=== PATIENT | female | born 1995 | race African-American/Black ===

== ENCOUNTER 2025-04-09 10:28 | Emergency (ER) | payer MEDICAID ==
[~2025-04-09] VITALS: Ht 162.6 cm; Wt 51.8 kg
--- NOTE | 2025-04-09 11:00 | ED.PDOC ---
SILVERER HPI Comments 29 y.o female presents to the ED for a chief complaint of pelvic pain associated with vaginal spotting s/p lifting a 5 gallon jug of water yesterday. Patient reports as she was lifting the gallon, felt a sharp left sided pelvic pain, states she placed the gallon down and later that day when using the restroom, noticed light spotting. Patient is about 5 weeks gestation, was [facility] at [facility] who confirmed to be around 4 weeks via LMP. Patient today states no spotting however is now having right sided pelvic pressure. She denies any clotting, fever, chills, back pain, nausea or vomiting. She has a hx of one in the past. . Chief Complaint: Vaginal Bleed Time Seen by MD: 10:52 Reviewed Notes: Nurses Notes, Medications, Allergies Allergies: Coded Allergies: NO KNOWN ALLERGIES (Unverified , 04/09/25) Home Meds Active Scripts Acetaminophen (Tylenol Extra Strength) 500 Mg Tab, 1000 MG PO Q6HP PRN, #30 TAB prn pain Prov:SHARIF PARDO MD 04/09/25 Nitrofurantoin Monohydrate Mac (Macrobid) 100 Mg Cap, 100 MG PO BID for 7 Days, #14 CAP Prov:SHARIF PARDO MD 04/09/25 Information Source: Patient Mode of Arrival: Ambulatory Timing: Days (1) Severity: Mild Vaginal Discharge: None Vaginal Lesions: None Vaginal Mass: None Onset Of Mass/Bleeding: Spontaneous Sexual Activity: Last Consensual [place]: Unknown Control: None History of: Current Associated Signs and Symptoms: Vaginal Bleeding, Cramping Past Medical History PAST MEDICAL HISTORY: Denies Surgical History (Other): Elective ab 2 Para 0 AB 1 Family History Family History: Reviewed,noncontributory to illness Social History Smoker: Non-Smoker Alcohol: Denies ETOH Use Drugs: Denies Drug Use Lives In: Home Constitutional: denies: chills, diaphoresis, fatigue, fever, malaise, sweats, weakness, others EENTM: denies: blurred vision, double vision, ear bleeding, ear discharge, ear drainage, ear pain, ear ringing, eye pain, eye redness, hearing loss, mouth pain, mouth swelling, nasal discharge, nose bleeding, nose congestion, nose pain, photophobia, tearing, throat pain, throat swelling, voice changes, others Respiratory: denies: cough, hemoptysis, orthopnea, SOB at rest, shortness of breath, SOB with excertion, stridor, wheezing, others Cardiovascular: denies: chest pain, dizzy spells, diaphoresis, Dyspnea on exertion, edema, irregular heart beat, left arm pain, lightheadedness, palpitations, PND, syncope, others Gastrointestinal: denies: abdomen distended, abdominal pain, blood streaked bowels, constipated, diarrhea, dysphagia, difficulty swallowing, hematemesis, melena, nausea, poor appetite, poor fluid intake, rectal bleeding, rectal pain, vomiting, others Genitourinary: reports: abnormal vagina bleeding, pain, ; denies: burning, dyspareunia, dysuria, flank pain, frequency, hematuria, incontinence, vagina discharge, urgency, others Neurological: denies: dizziness, fainting, headache, left sided numbness, left sided weakness, numbness, paresthesia, pre-existing deficit, right sided numbness, right sided weakness, seizure, speech problems, tingling, tremors, weakness, others Musculoskeletal: denies: back pain, gout, joint pain, joint swelling, muscle pain, muscle stiffness, neck pain, others Integumetry: denies: bruises, change in color, change in hair/nails, dryness, laceration, lesions, lumps, rash, wounds, others Allergic/Immunocompromised: denies: Difficulty Healing, Frequent Infections, Hives, Itching, others Hematologic/Lymphatic: denies: anemia, blood clots, easy bleeding, easy bruising, swollen glands, others Psychiatric: denies: anxiety, bipolar disorder, depression, hopeless, panic disorder, schizophrenia, sleepless, suicidal, others All Other Systems: Reviewed and Negative Physical Exam General Appearance: No Apparent Distress HEENT: Other (Pupils and face symmetric. Moist mucous membranes.) Neck: Full Range of Motion, Normal Inspection Respiratory: Lungs Clear, No Accessory Muscle Use, No Respiratory Distress, Normal Breath Sounds Cardiovascular: No Edema, No JVD, Regular Rate/Rhythm Breast Exam: Deferred Gastrointestinal: Non Tender, Soft Genitalia: Deferred Pelvic: Deferred Rectal: Deferred Extremities: Normal inspection, Normal range of motion, Non-tender, No pedal edema Neurologic: Alert (Oriented x4), Normal Affect, Normal Mood, Other (Ambulatory) Cerebellar Function: NOT DONE Reflexes: NOT DONE Skin: Dry, Normal Color, Warm Lymphatic: NOT DONE Was a procedure done? Was a procedure done?: No Differential Diagnosis (MERCHANDISING COORDINATOR) Vaginal Bleeding: - Incomplete, - Inevitable, - Missed, - Threatened, Ectopic , UTI X-Ray, Labs, Meds, VS Vital Signs Date Time Temp Pulse Resp B/P (MAP) Pulse Ox O2 Delivery O2 Flow Rate FiO2 04/09/25 10:30 98.7 74 16 115/75 94 98.7 Lab Test 04/09/25 11:19 04/09/25 11:08 Range/Units Urine Color Yellow Yellow Urine Clarity Clear Clear Urine pH 5.5 5.0-9.0 Urine Specific [place] 1.030 1.001-1.035 Urine Protein 1+ H Negative Urine Ketones 2+ H Negative Urine Blood Negative Negative /uL Urine Nitrite Negative Negative Urine Bilirubin Negative Negative Urine Urobilinogen Normal Negative mg/dL Urine Leukocyte Esterase Negative Negative /uL Urine RBC 1 0 - 4 /hpf Urine Microscopic WBC 3 0-5 /HPF Urine Squamous Epithelial Cells Few <5 /hpf Urine Bacteria Few H None Seen /hpf Urine Mucus Few None Seen Urine Glucose Normal Normal mg/dL Urine Test Positive Negative White Blood Count 7.4 4.4-10.8 10^3/uL Red Blood Count 4.90 4.0-5.20 10^6/uL Hemoglobin 15.0 12.2-16.2 g/dL Hematocrit 41.3 36.0-46.0 % Mean Corpuscular Volume 84.4 80.0-100.0 fL Mean Corpuscular Hemoglobin 30.6 28.0-32.0 pg Mean Corpuscular Hemoglobin Concent 36.2 H 32.0-36.0 g/dL Red Cell Distribution Width 13.7 11.8-14.3 % Platelet Count 368 140-450 10^3/uL Mean Platelet Volume 7.1 6.9-10.8 fL Neutrophils (%) (Auto) 64.7 37.0-80.0 % Lymphocytes (%) (Auto) 27.6 10.0-50.0 % Monocytes (%) (Auto) 6.3 0.0-12.0 % Eosinophils (%) (Auto) 1.0 0.0-7.0 % Basophils (%) (Auto) 0.4 0.0-2.0 % Neutrophils # (Auto) 4.8 1.6-8.6 10 ^3/uL Lymphocytes # (Auto) 2.1 0.4-5.4 10 ^3/uL Monocytes # (Auto) 0.5 0-1.3 10 ^3/uL Eosinophils # (Auto) 0.1 0-0.8 10 ^3/uL Basophils # (Auto) 0 0-0.2 10 ^3/uL Nucleated Red Blood Cells 0.2 % Sodium Level 137 136-145 mmol/L Potassium Level 3.4 L 3.5-5.1 mmol/L Chloride Level 106 98-107 mmol/L Carbon Dioxide Level 24 20-31 mmol/L Anion Gap 7 5-15 Blood Urea Nitrogen 10 9-23 mg/dL Creatinine 0.79 0.550-1.02 mg/dL Glomerular Filtration Rate Calc 105 >90 mL/min BUN/Creatinine Ratio 12.7 10.0-20.0 Serum Glucose 80 74-106 mg/dL Calcium Level 9.6 8.7-10.4 mg/dL Beta HCG, Quantitative 7146.4 H 1.5-4.2 mIU/mL Current Medications Medications (Trade) Dose Ordered Sig/Shelley Route Start Time Stop Time Status Last Admin Potassium Bicarbonate (Klor-Con/Ef) 50 meq ONCE ONCE PO 04/09/25 12:45 04/09/25 12:52 DC 04/09/25 13:11 [place] [address] Ph: [phone] DIAGNOSTIC IMAGING Diagnostic Imaging Report : [id number] Signed PATIENT: MARTA ZELAYA ACCT: [id number] UNIT: [id number] : 1995 LOC: ER ROOM / BED: / AGE / SEX: 29 / F ADM STATUS: REG ER SERVICE 1050 ORDERING PHYSICIAN: SHARIF PARDO MD PROCEDURE(s): OB4US - OB ULTRASOUND COMP LESS 14WKS REASON: preg vag bleed ORDER NUMBER(s): [id number], ACCESSION NUMBER(s): [id number] CLINICAL HISTORY: . Vaginal bleeding. COMPARISON:US OB TRANS VAGINAL US on DOS: 04/09/25 TECHNIQUE: Transvaginal and transabdominal grayscale sonographic imaging of the uterus and ovaries was performed, assisted by color Doppler technique. Duplex Doppler ultrasound of both ovaries was also performed. FINDINGS: The uterus measures 8.7 x 5.0 x 5.1 cm. There is an intrauterine gestational sac with no yolk sac or pole identified. [place]-rump length measures 0.51 cm, which is out of range for gestational age determination. There is a 2.5 cm cystic structure in the cervix, likely nabothian cyst. Small amount of fluid in the cul-de-sac. Right ovary measures 2.6 x 1.5 x 1.4 cm. Arterial and venous blood flow demonstrated. There is an isoechoic ovoid structure in the right ovary measuring up to 2.2 x 1.6 x 1.1 cm with prominent peripheral vascular flow. Left ovary measures 2.0 x 1.1 x 1.2 cm. Arterial and venous blood flow demonstrated. Small left ovarian follicles are seen. IMPRESSION: 1. Small intrauterine gestational sac in the endometrial canal. No yolk sac or pole identified. The size of the gestational sac is out of range for gestational age determination. Correlate with clinical findings, serial beta HCG levels, and follow-up ultrasound recommended. 2. Ovoid structure in the right ovary is isoechoic to the right ovarian parenchyma with prominent peripheral vascularity. Possibly collapsing complex cyst or other mass. Correlate with clinical findings. Attention on follow-up ultrasound recommended. 3. Likely nabothian cyst in the cervix. 4. Small amount of free fluid in the cul-de-sac, likely physiologic fluid. X-Ray, Labs, Meds, VS Comment 29-year-old female G 2, P0, AB1, with current approximate 5 week presenting complaining of pelvic discomfort and vaginal spotting after an episode of heavy lifting Vitals remarkable for oxygen saturation 94% on room air Exam unremarkable Rhythm strip independently interpreted by me: Sinus rhythm, rate 74, no ectopy. Ob ultrasound CBC unremarkable, basic metabolic panel remarkable for potassium 3.4, serum quantitative hCG 7146.4, UA positive for protein, ketones, squames and bacteria Patient treated with the following in the ED: Effervescent potassium 50 mEq p.o. On re-evaluation, patient states she was not in significant pain. Vitals were stable. Exam was benign. Patient was hemodynamically stable. Patient appears stable for discharge with close outpatient follow-up with her OBGYN in 3-4 days for repeat ultrasound repeat serum quantitative hCG. Patient will also be referred to Dr. Verma. Rx Macrobid to cover for bacteriuria. Time of 1ST Reevaluation: 12:00 Reevaluation 1ST: Unchanged Patient Education/Counseling: Diagnosis, Treatment, Need For Follow Up Family Education/Counseling: No Family Present Departure 1 Departure Time of Disposition: 12:46 Impression: Primary Impression: Vaginal bleeding affecting early Disposition: 01 HOME / SELF CARE / HOMELESS Condition: Stable Referrals: FILEMON VERMA DO Additional Instructions: Your blood tests showed you have a slightly low potassium. We have corrected this in the ER. Your urine test showed you have some bacteria in your urine, which in we treat with antibiotics to prevent infection. I have prescribed antibiotics which have been sent to your pharmacy. Your ultrasound showed a possible gestational sac, however we are unable to visualize a fetus at this time. It may be too early to see the baby, you may recently have had a miscarriage, or you may have a outside of the uterus, as we discussed earlier. I have enclosed your ultrasound report below to show to your doctor when you follow up. Follow-up with your OBGYN or in ER in 3-4 days for repeat serum quantitative hCG ( hormone level) and repeat ultrasound. Return to ER sooner for severe pain, heavy bleeding, or any other concern. If you do not have an OBGYN, you may follow-up with Dr. Verma. [place] [address] Ph: [phone] DIAGNOSTIC IMAGING Diagnostic Imaging Report : [id number] Signed PATIENT: MARTA ZELAYA ACCT: [id number] UNIT: [id number] : 1995 LOC: ER ROOM / BED: / AGE / SEX: 29 / F ADM STATUS: REG ER SERVICE 1050 ORDERING PHYSICIAN: SHARIF PARDO MD PROCEDURE(s): OB4US - OB ULTRASOUND COMP LESS 14WKS REASON: preg vag bleed ORDER NUMBER(s): [id number], ACCESSION NUMBER(s): [id number] CLINICAL HISTORY: . Vaginal bleeding. COMPARISON:US OB TRANS VAGINAL US on DOS: 04/09/25 TECHNIQUE: Transvaginal and transabdominal grayscale sonographic imaging of the uterus and ovaries was performed, assisted by color Doppler technique. Duplex Doppler ultrasound of both ovaries was also performed. FINDINGS: The uterus measures 8.7 x 5.0 x 5.1 cm. There is an intrauterine gestational sac with no yolk sac or pole identified. [place]-rump length measures 0.51 cm, which is out of range for gestational age determination. There is a 2.5 cm cystic structure in the cervix, likely nabothian cyst. Small amount of fluid in the cul-de-sac. Right ovary measures 2.6 x 1.5 x 1.4 cm. Arterial and venous blood flow demonstrated. There is an isoechoic ovoid structure in the right ovary measuring up to 2.2 x 1.6 x 1.1 cm with prominent peripheral vascular flow. Left ovary measures 2.0 x 1.1 x 1.2 cm. Arterial and venous blood flow demonstrated. Small left ovarian follicles are seen. IMPRESSION: 1. Small intrauterine gestational sac in the endometrial canal. No yolk sac or pole identified. The size of the gestational sac is out of range for gestational age determination. Correlate with clinical findings, serial beta HCG levels, and follow-up ultrasound recommended. 2. Ovoid structure in the right ovary is isoechoic to the right ovarian parenchyma with prominent peripheral vascularity. Possibly collapsing complex cyst or other mass. Correlate with clinical findings. Attention on follow-up ultrasound recommended. 3. Likely nabothian cyst in the cervix. 4. Small amount of free fluid in the cul-de-sac, likely physiologic fluid. e-Prescriptions Acetaminophen (Tylenol Extra Strength) 500 Mg Tab 1000 MG PO Q6HP PRN, #30 TAB prn pain Prov: SHARIF PARDO MD 04/09/25 Nitrofurantoin Monohydrate Mac (Macrobid) 100 Mg Cap 100 MG PO BID for 7 Days, #14 CAP Prov: SHARIF PARDO MD 04/09/25 Discharged With: Relative Critical Care Note Critical Care Time?: No Stability Stability form required: No I personally scribed for SHARIF PARDO MD ([email or web address]) on 04/09/25 at 11:00. Electronically submitted by Karolyn Puente ([facility]). I personally scribed for SHARIF PARDO MD ([email or web address]) on 04/09/25 at 11:20. Electronically submitted by Karolyn Puente ([facility]). SHARIF PARDO MD Apr 09, 2025 11:00
[2025-04-09 11:26] LABS: Hematocrit 41.3 % (36.0-46.0); Hemoglobin 15.0 g/dL (12.2-16.2); Mean Corpuscular Hemoglobin 30.6 pg (28.0-32.0); Mean Corpuscular Volume 84.4 fL (80.0-100.0); Nucleated Red Blood Cells % 0.2 %
[2025-04-09 11:27] LABS: Chloride 106 mmol/L (98-107); Sodium 137 mmol/L (136-145)
[2025-04-09 11:28] LABS: Urine Protein, UAD 1+ (Negative)
[2025-04-09 11:28] LABS: Carbon Dioxide 24 mmol/L (20-31)
[2025-04-09 11:29] LABS: Calcium 9.6 mg/dL (8.7-10.4)
[2025-04-09 11:30] LABS: Potassium 3.4 mmol/L (3.5-5.1)
[2025-04-09 11:31] LABS: Anion Gap 7 (5-15)
[2025-04-09 11:34] LABS: BUN/Creatinine Ratio 12.7 (10.0-20.0); Blood Urea Nitrogen 10 mg/dL (9-23); Glucose 80 mg/dL (74-106)
[2025-04-09] MEDS ORDERED: NITR-87 PO (12:50)
[2025-04-09] MEDS ORDERED: ACET-1304 PO (12:50)
--- NOTE | 2025-04-09 13:00 | DVH ---
CLINICAL HISTORY: . Vaginal bleeding. COMPARISON:US OB TRANS VAGINAL US on DOS: 04/09/25 TECHNIQUE: Transvaginal and transabdominal grayscale sonographic imaging of the uterus and ovaries wa s performed, assisted by color Doppler technique. Duplex Doppler ultrasound of both ovaries was also performed. FINDINGS: The uterus measures 8.7 x 5.0 x 5.1 cm. There is an intrauterine gestational sac with no yo lk sac or pole identified. [place]-rump length measures 0.51 cm, which is out of range for gesta tional age determination. There is a 2.5 cm cystic structure in the cervix, likely nabothian cyst. Sm all amount of fluid in the cul-de-sac. Right ovary measures 2.6 x 1.5 x 1.4 cm. Arterial and venous blood flow demonstrated. There is an iso echoic ovoid structure in the right ovary measuring up to 2.2 x 1.6 x 1.1 cm with prominent periphera l vascular flow. Left ovary measures 2.0 x 1.1 x 1.2 cm. Arterial and venous blood flow demonstrated. Small left ovari an follicles are seen. IMPRESSION: 1. Small intrauterine gestational sac in the endometrial canal. No yolk sac or pole identified. The size of the gestational sac is out of range for gestational age determination. Correlate with cl inical findings, serial beta HCG levels, and follow-up ultrasound recommended. 2. Ovoid structure in the right ovary is isoechoic to the right ovarian parenchyma with prominent per ipheral vascularity. Possibly collapsing complex cyst or other mass. Correlate with clinical finding s. Attention on follow-up ultrasound recommended. 3. Likely nabothian cyst in the cervix. 4. Small amount of free fluid in the cul-de-sac, likely physiologic fluid.
[2025-04-09] MEDS: POTASSIUM EFFERVESENT TAB 25 MEQ PO ONE (13:11)
[2025-04-09] MEDS ORDERED: POTASSIUM EFFERVESENT TAB 25 MEQ ONE (13:13)
[2025-04-09 14:45] VITALS: BP 132/75; PULSE 105; RESP 16; TEMP 99; O2SAT 96
== END 2025-04-09 14:45 | disposition home or self-care (01) ==
LOC: ER 10:28
DX: O20.9 Hemorrhage in early pregnancy, unspecified (principal); R10.2 Pelvic and perineal pain; Z3A.01 Less than 8 weeks gestation of pregnancy
CPT/HCPCS: 36415; 76801; 76817; 80048; 81001; 81025; 84702; 85025

== ENCOUNTER 2025-04-18 18:21 | Emergency (ER) | payer MEDICAID ==
[~2025-04-18] VITALS: Ht 162.6 cm; Wt 48.0 kg
[~2025-04-18 18:21] MED LIST: ACET-1304 PO; NITR-87 PO
[2025-04-18] MEDS: SODIUM CHLORIDE 0.9% 1,000 ML IV ONE (19:15)
[2025-04-18 19:58] LABS: Hematocrit 39.3 % (36.0-46.0); Hemoglobin 14.0 g/dL (12.2-16.2); Mean Corpuscular Hemoglobin 30.2 pg (28.0-32.0); Mean Corpuscular Volume 84.4 fL (80.0-100.0); Nucleated Red Blood Cells % 0.1 %
--- NOTE | 2025-04-18 20:11 | ED.PDOC ---
GI ASSESSMENT HPI Comments HPI: 30 y/o F, with no prior medical history presents to the ED for CC of diarrhea. Patient states, she has had diarrhea following recent travel outside the [place] to [place] x1week ago. Patient endorses, bowls to have been loose and blood streaked as of this morning (04/18/25 with areas of "beat color". Patient x1. She is 6weeks gestation by home test. She mentions having LLQ abdominal cramping with "dark brown" vaginal discharge x2days. Patient denies any nausea, vomiting, fever, or chills. No other symptoms or modifying factors are present at this time. Initial Vitals BP: HR: RR: O2 Sat: Temp: Past Medical history: DENIES ANY Past Surgical history: DENIES ANY Medications: PRENATALS Social History: Denies smoking, ETOH, and drug use. Allergies: NKDA HPI: Poor Historian. REVIEW OF SYSTEMS: CONSTITUTIONAL: Denies acute: fever, diaphoresis, chills, generalized weakness. HEAD: Denies acute: headache, photophobia Eyes: Denies acute: Double vision, vision loss, eye pain, eye discharge. EARS: Denies acute: tinnitus, hearing loss, ear discharge, ear pain, THROAT: Denies acute: sore throat, swelling, difficulty swallowing , pain with swallowing, change in voice. NECK: Denies acute: neck pain, neck swelling, stiff neck. HEART: Denies acute : chest pain, palpitations, LUNGS: Denies acute: SOB, wheezing, cough, hemoptysis ABDOMEN: Denies acute: Nausea, Vomiting, melena , hematemesis, hematochezia SKIN: Denies acute: rash, redness, lesions, itchiness. EXTREMITIES: Denies acute: calf pain, numbness, tingling, weakness, denies pain in extremity. Denies acute: Low back pain. Neuro: Denies acute: focal neurological deficit, motor or sensory focal neurological deficit, tremors, seizure like activity, confusion, dizziness, change in mental status, loss of bowel or bladder function, cauda equina like symptoms. : Denies acute: dysuria, hematuria, flank pain, increase in urinary frequency. PSYCH: Denies acute: hallucination, suicidal ideation, homicidal ideation. FEMALE: Denies acute: abnormal vaginal bleeding, foul odor, PHYSICAL EXAM: General: ----mild----acute distress, awake and alert. Head: normocephalic, atraumatic. Neck: supple, trachea is midline, no swelling. Throat: Normal phonation. Eyes:, no erythema, no purulent discharge, no proptosis, no icterus. Heart: regular rate, regular rhythm, no significant murmur appreciated. Lungs: no apparent respiratory distress, Able to speak in full sentences. No wheezing, no rhonchi, no crackles. No stridors Clear to auscultation bilaterally. Abdomen: non tender to palpation, non distended, soft, no guarding, no rebound, + bowel sounds. Neuro: Awake, Alert, oriented to name, self, situation, follows commands GCS=15. Speech is normal. Skin: no petechia, no purpura, no cyanosis, non-pale, not jaundice. Lower extremities: --no - Pitting edema no deformity, no focal swelling, no calf TTP. Makes eye contact. moves all four extremities. Face: no apparent facial droop. Ambulating in the ED independently. ED COURSE: DISCLAIMER: This medical document was created using an electronic medical record system with voice recognition software and computerized dictation system. Although this document has been carefully reviewed, there might still be some phonetic and typographical errors. Occasional wrong-word or "sound-alike" substitutions may have occurred due to the inherent limitations of voice recognition software. These areas are purely typographical due to imperfections of the software programs and do not reflect any compromise in the patient's medical care. Please read the chart carefully and recognize, using context, where these substitutions have occurred. Chief Complaint: Diarrhea Time Seen by MD: 20:00 Reviewed Notes: Nurses Notes, Medications, Allergies Allergies: Coded Allergies: NO KNOWN ALLERGIES (Unverified , 04/09/25) Home Meds Active Scripts Acetaminophen (Tylenol Extra Strength) 500 Mg Tab, 1000 MG PO Q6HP PRN, #30 TAB prn pain Prov:SHARIF PARDO MD 04/09/25 Nitrofurantoin Monohydrate Mac (Macrobid) 100 Mg Cap, 100 MG PO BID for 7 Days, #14 CAP Prov:ESTEBAN HICKSSHARIF MD 04/09/25 Information Source: Patient Mode of Arrival: Ambulatory Timing: Weeks Duration: Since onset Prehospital treatment: None Quality: Cramping Stool: Watery Severity: Moderate Recent: Travel Recent Hx of: Current Pain Location: Suprapubic Modifying Factors: Nothing Associated sign and symptoms: Diarrhea, Abdominal Pain, Blood in Stool Was a procedure done? Was a procedure done?: No GI differential Dx Differential Diagnosis: Gastritis/PUD, Gastroenteritis, Electrolyte Imbalance, Food Poisoning, Bacterial, Viral X-Ray, Labs, Meds, VS Vital Signs Date Time Temp Pulse Resp B/P (MAP) Pulse Ox O2 Delivery O2 Flow Rate FiO2 04/18/25 20:19 79 16 94 Room Air 04/18/25 20:17 98.4 79 16 112/61 (78) 94 98.4 04/18/25 18:24 97.3 112 16 97/76 95 97.3 Lab Test 04/18/25 21:10 04/18/25 19:39 Range/Units Urine Color Light-yellow Yellow Urine Clarity Clear Clear Urine pH 5.5 5.0-9.0 Urine Specific [place] 1.011 1.001-1.035 Urine Protein Negative Negative Urine Ketones Negative Negative Urine Blood 1+ H Negative /uL Urine Nitrite Negative Negative Urine Bilirubin Negative Negative Urine Urobilinogen Normal Negative mg/dL Urine Leukocyte Esterase Negative Negative /uL Urine RBC <1 0 - 4 /hpf Urine Microscopic WBC 1 0-5 /HPF Urine Squamous Epithelial Cells Few <5 /hpf Urine Bacteria Mod H None Seen /hpf Urine Mucus Few None Seen Urine Glucose Normal Normal mg/dL Chlamydia trachomatis (MEENAKSHI) Pending Neisseria gonorrhoeae (MEENAKSHI) Pending White Blood Count 8.5 4.4-10.8 10^3/uL Red Blood Count 4.65 4.0-5.20 10^6/uL Hemoglobin 14.0 12.2-16.2 g/dL Hematocrit 39.3 36.0-46.0 % Mean Corpuscular Volume 84.4 80.0-100.0 fL Mean Corpuscular Hemoglobin 30.2 28.0-32.0 pg Mean Corpuscular Hemoglobin Concent 35.8 32.0-36.0 g/dL Red Cell Distribution Width 13.7 11.8-14.3 % Platelet Count 340 140-450 10^3/uL Mean Platelet Volume 7.4 6.9-10.8 fL Neutrophils (%) (Auto) 61.9 37.0-80.0 % Lymphocytes (%) (Auto) 28.0 10.0-50.0 % Monocytes (%) (Auto) 8.2 0.0-12.0 % Eosinophils (%) (Auto) 1.3 0.0-7.0 % Basophils (%) (Auto) 0.6 0.0-2.0 % Neutrophils # (Auto) 5.3 1.6-8.6 10 ^3/uL Lymphocytes # (Auto) 2.4 0.4-5.4 10 ^3/uL Monocytes # (Auto) 0.7 0-1.3 10 ^3/uL Eosinophils # (Auto) 0.1 0-0.8 10 ^3/uL Basophils # (Auto) 0 0-0.2 10 ^3/uL Nucleated Red Blood Cells 0.1 % Sodium Level 136 136-145 mmol/L Potassium Level 4.0 3.5-5.1 mmol/L Chloride Level 102 98-107 mmol/L Carbon Dioxide Level 25 20-31 mmol/L Anion Gap 9 5-15 Blood Urea Nitrogen 7 L 9-23 mg/dL Creatinine 0.64 0.550-1.02 mg/dL Glomerular Filtration Rate Calc 123 >90 mL/min BUN/Creatinine Ratio 10.9 10.0-20.0 Serum Glucose 91 74-106 mg/dL Calcium Level 9.6 8.7-10.4 mg/dL Total Bilirubin 0.6 0.2-1.0 mg/dL Aspartate Amino Transferase (AST) 17 13-40 U/L Alanine Aminotransferase (ALT) 15 7-40 U/L Alkaline Phosphatase 81 46-116 U/L Total Protein 7.2 5.7-8.2 g/dL Albumin 4.5 3.2-4.8 g/dL Beta HCG, Quantitative 59156.2 H 1.5-4.2 mIU/mL Current Medications Medications (Trade) Dose Ordered Sig/Shelley Route Start Time Stop Time Status Last Admin Sodium Chloride 1,000 ml @ 1,000 mls/hr Q1H ONCE IV 04/18/25 19:15 04/18/25 20:14 DC 04/18/25 19:15 [facility] [address] [facility] [address] Ph: [phone] DIAGNOSTIC IMAGING Diagnostic Imaging Report : [id number] Signed PATIENT: MARTA ZELAYA ACCT: [id number] UNIT: [id number] : 1995 LOC: ER ROOM / BED: / AGE / SEX: 30 / F ADM STATUS: REG ER SERVICE 11 ORDERING PHYSICIAN: FAZAL KNIGHT DO PROCEDURE(s): OB4US - OB ULTRASOUND COMP LESS 14WKS REASON: pelvic pain with Vag discharge. ORDER NUMBER(s): [id number], ACCESSION NUMBER(s): [id number] OB ULTRASOUND <14 WEEKS: HISTORY: pelvic pain with Vag discharge. TECHNIQUE: Multiple real-time grayscale sonographic images of the pelvis with duplex doppler color flow, spectral and M-mode analysis. COMPARISON: US OB ULTRASOUND COMP LESS 14WKS on DOS: 04/09/25, US OB TRANS VAGINAL US on DOS: 04/09/25 FINDINGS: The uterus measures 9.4 X 6.4 X 6.2 cm The cervix is unremarkable Right ovary measures 3.5 X 2.3 X 3.3 cm with normal Doppler color flow. Left ovary measures 3.5 X 2.2 X 2.7 cm with normal Doppler color flow. IUP single fetus at 5 weeks 5 days average ultrasound age based on mean crown- rump length of 0.23 cm and gestational sac size of 1.39 cm heart rate detected at 126 beats per minute. Yolk sac unmarkable. Amniotic fluid is unremarkable Angelina-gestational space: No SUBCHORIONIC hemorrhage. IMPRESSION: 1. IUP single fetus 5 weeks 5 days AUA corresponding to an CHRIS of 06/16/2024. 2. No significant abnormality. ATED BY: ANDERSON ROMERO MD DICTATED DATE/TIME: 04/18/252130 SIGNED BY: ANDERSON ROMERO MD SIGNED DATE/TIME: 04/18/252130 CC: Time of 1ST Reevaluation: 20:30 Reevaluation 1ST: Unchanged Patient Education/Counseling: Diagnosis, Treatment Family Education/Counseling: No Family Present SEPSIS Sepsis Screen Date sepsis recognized/suspect: Apr 18, 2025 Time Sepsis recognized/suspect: 1823 Recent Procedure: No On Antibiotic Therapy: No Respiratory Rate >20: No Heart Rate >90: Yes Temp<36 C (96.8 F) or >38.3 C: No SBP <90 or MAP <65 mmHG: No New Acute Mental Status Change: No Is the patient on CPAP, BIPAP,: No Physician Orders Airline Attendant (04/18/25 ) Ova & Parasite Exam (04/18/25 19:11) Stool Bacterial Culture (04/18/25 19:11) Stool Occult Blood (04/18/25 19:11) Stool Wbc (04/18/25 19:11) Chlamydia/Gc Amplification (04/18/25 19:11) Ob Ultrasound Comp Less 14wks (04/18/25 19:12) Vital Signs Date Time Temp Pulse Resp B/P (MAP) Pulse Ox O2 Delivery O2 Flow Rate FiO2 04/18/25 20:19 79 16 94 Room Air 04/18/25 20:17 98.4 79 16 112/61 (78) 94 98.4 04/18/25 18:24 97.3 112 16 97/76 95 97.3 Laboratory Tests Test 04/18/25 19:39 White Blood Count 8.5 10^3/uL (4.4-10.8) Medications Medications Dose Ordered Sig/Shelley Route Start Time Stop Time Status Last Admin Dose Admin Sodium Chloride 1,000 ml @ 1,000 mls/hr Q1H ONCE IV 04/18/25 19:15 04/18/25 20:14 DC 04/18/25 19:15 Departure 1 Departure Time of Disposition: 22:00 Impression: Primary Impression: Intrauterine Additional Impressions: Diarrhea Bacteria in urine Disposition: HOME / SELF CARE / HOMELESS Condition: Stable Additional Instructions: Additional instructions: Please read all instructions provided in this packet carefully. You MUST follow-up with your primary care/family doctor in 1 to 2 days. If you are unable to see your primary care/family doctor, please return to our emergency room for re-assessment and re-evaluation in 1 to 2 days. Return to the emergency room here in our facility or to the nearest ER GEN if your symptoms change or worsen. CONSULTATIONS: you MUST Follow-up for consultation as soon as possible with: Dr. SAIDA Pena doctor and gastroenterology in 1-2 days. Please call for appointment. You MUST call the consultants office yourself to make an appointment. You may need to arrange that through your insurance and/or your primary/family doctor. If you are unable to see the application packaging consultant in 1 to 2 days, you must return to our emergency room (or any other ER of your choice) for re-assessment and re-yamel luation. Adequate fluid hydration. Although you have been discharged from the Emergency Department, this does not mean that you have a "clean bill of health". No definitive diagnosis for your symptoms has been made today. It is possible that you are in the process of developing a serious illness. This is why you must return to the ED without fail if any new or worsening symptoms develop. Repeat pelvic ultrasound in 4-5 days. Repeat beta-hCG levels in 48-72 hours. BETA HCG LEVELS TODAY (04/18/25): 23,365.2H Below is a copy of your radiological report for follow up: [place] [address] Ph: [phone] DIAGNOSTIC IMAGING Diagnostic Imaging Report : [id number] Signed PATIENT: MARTA ZELAYA ACCT: [id number] UNIT: [id number] : 1995 LOC: ER ROOM / BED: / AGE / SEX: 30 / F ADM STATUS: REG ER SERVICE 11 ORDERING PHYSICIAN: FAZAL KNIGHT DO PROCEDURE(s): OB4US - OB ULTRASOUND COMP LESS 14WKS REASON: pelvic pain with Vag discharge. ORDER NUMBER(s): [id number], ACCESSION NUMBER(s): [id number] OB ULTRASOUND <14 WEEKS: HISTORY: pelvic pain with Vag discharge. TECHNIQUE: Multiple real-time grayscale sonographic images of the pelvis with duplex doppler color flow, spectral and M-mode analysis. COMPARISON: US OB ULTRASOUND COMP LESS 14WKS on DOS: 04/09/25, US OB TRANS VAGINAL US on DOS: 04/09/25 FINDINGS: The uterus measures 9.4 X 6.4 X 6.2 cm The cervix is unremarkable Right ovary measures 3.5 X 2.3 X 3.3 cm with normal Doppler color flow. Left ovary measures 3.5 X 2.2 X 2.7 cm with normal Doppler color flow. IUP single fetus at 5 weeks 5 days average ultrasound age based on mean crown- rump length of 0.23 cm and gestational sac size of 1.39 cm heart rate detected at 126 beats per minute. Yolk sac unmarkable. Amniotic fluid is unremarkable Angelina-gestational space: No SUBCHORIONIC hemorrhage. IMPRESSION: 1. IUP single fetus 5 weeks 5 days AUA corresponding to an CHRIS of 06/16/2024. 2. No significant abnormality. ATED BY: ANDERSON ROMERO MD DICTATED DATE/TIME: 04/18/252130 SIGNED BY: ANDERSON ROMERO MD SIGNED DATE/TIME: 04/18/252130 CC: e-Prescriptions Cephalexin Monohydrate (Cephalexin) 500 Mg Tab 1 TAB PO TID for 5 Days, #15 TAB Prov: FAZAL KNIGHT DO 04/18/25 Discharged With: Self Critical Care Note Critical Care Time?: No I personally scribed for FAZAL KNIGHT DO ([email or web address]) on 04/18/25 at 20:11. Electronically submitted by Radha Lao (Interventional Imaging). I personally scribed for FAZAL KNIGHT DO ([email or web address]) on 04/18/25 at 20:27. Electronically submitted by Radha Lao ([email or web address]). I personally scribed for FAZAL KNIGHT DO ([email or web address]) on 04/18/25 at 21:37. Electronically submitted by Radha Lao ([email or web address]). I personally scribed for FAZAL KNIGHT DO ([email or web address]) on 04/18/25 at 22:00. Electronically submitted by Radha Lao (Interventional Imaging). FAZAL KNIGHT DO Apr 18, 2025 20:11
[2025-04-18 20:14] LABS: Alanine Aminotransferase 15 U/L (7-40); Albumin 4.5 g/dL (3.2-4.8); Alkaline Phosphatase 81 U/L (46-116); Calcium 9.6 mg/dL (8.7-10.4); Carbon Dioxide 25 mmol/L (20-31); Chloride 102 mmol/L (98-107)
[2025-04-18 20:15] LABS: Anion Gap 9 (5-15); BUN/Creatinine Ratio 10.9 (10.0-20.0); Bilirubin, Total 0.6 mg/dL (0.2-1.0); Glucose 91 mg/dL (74-106); Potassium 4.0 mmol/L (3.5-5.1); Sodium 136 mmol/L (136-145); Total Protein 7.2 g/dL (5.7-8.2)
[2025-04-18 20:17] VITALS: BP 112/61; TEMP 98.4
[2025-04-18 20:17] LABS: Blood Urea Nitrogen 7 mg/dL (9-23)
[2025-04-18 20:19] VITALS: PULSE 79; RESP 16
--- NOTE | 2025-04-18 21:33 | DVH ---
OB ULTRASOUND <14 WEEKS: HISTORY: pelvic pain with Vag discharge. TECHNIQUE: Multiple real-time grayscale sonographic images of the pelvis with duplex doppler color fl ow, spectral and M-mode analysis. COMPARISON: US OB ULTRASOUND COMP LESS 14WKS on DOS: 04/09/25, US OB TRANS VAGINAL US on DOS: 04/09/25 FINDINGS: The uterus measures 9.4 X 6.4 X 6.2 cm The cervix is unremarkable Right ovary measures 3.5 X 2.3 X 3.3 cm with normal Doppler color flow. Left ovary measures 3.5 X 2.2 X 2.7 cm with normal Doppler color flow. IUP single fetus at 5 weeks 5 days average ultrasound age based on mean crown-rump length of 0.23 cm and gestational sac size of 1.39 cm heart rate detected at 126 beats per minute. Yolk sac unmarkable. Amniotic fluid is unremarkable Angelina-gestational space: No SUBCHORIONIC hemorrhage. IMPRESSION: 1. IUP single fetus 5 weeks 5 days AUA corresponding to an CHRIS of 06/16/2024. 2. No significant abnormality.
[2025-04-18 21:52] LABS: Urine Protein, UAD Negative (Negative)
[2025-04-18] MEDS ORDERED: CEPH500T PO (22:02)
[2025-04-18] MEDS: ONDANSETRON HCL 4 MG/2 ML VIAL IV ONE (22:32)
[2025-04-18 22:45] VITALS: O2SAT 98
[2025-04-20 15:07] LABS: Chlamydia Trachomatis, NAA Negative (Negative); Neisseria gonorrhoeae, NAA Negative (Negative)
== END 2025-04-18 22:53 | disposition home or self-care (01) ==
LOC: ER 18:21
DX: O00.01 Abdominal pregnancy with intrauterine pregnancy (principal); R19.7 Diarrhea, unspecified; Z3A.01 Less than 8 weeks gestation of pregnancy
CPT/HCPCS: 36415; 76801; 80053; 81001; 84702; 85025; 87491; 87591; 96360; 96361; 99284; J7030

== ENCOUNTER 2025-05-05 11:11 | Emergency (ER) | payer MEDICAID ==
[~2025-05-05] VITALS: Ht 162.6 cm; Wt 50.2 kg
[~2025-05-05 11:11] MED LIST changes: +CEPH500T PO
--- NOTE | 2025-05-05 12:26 | ED.PDOC ---
History of Present Illness HPI Comments A 30 YEAR OLD FEMALE PRESENTS TO THE ED WITH COMPLAINT OF VAGINAL SPOTTING THAT STARTED LAST NIGHT. PATIENT REPORTS SHE WAS RECENTLY DX WITH A UTI ABOUT 2-3 WEEKS AGO, WAS RX ANTIBIOTICS AND FINISHED THE COURSE. PATIENT SINCE HAS NOT HAD UTI SYMPTOMS BUT NOTICES SPOTTING IS MORE PROFOUND WHEN WIPING. ADDITIONALLY, SHE COMPLAINS OF A SORE THROAT THAT HAS BEEN ONGOING FOR THE PAST WEEK. SHE DENIES ANY DIFFICULTY SWALLOWING. PATIENT DENIES FEVER, CHILLS, SHORTNESS OF BREATH, CHEST PAIN, ABDOMINAL PAIN, NAUSEA, VOMITING, HEADACHE, OR OTHER COMPLAINTS. NO OTHER SYMPTOMS OR MODIFYING FACTORS AT THIS TIME. PATIENT IS ALERT, ORIENTED X 4, AND HAS STEADY GAIT. Chief Complaint: Flu like Time Seen by MD: 12:12 Reviewed Notes: Nurses Notes, Medications, Allergies Allergies: Coded Allergies: NO KNOWN ALLERGIES (Unverified , 04/09/25) Home Meds Active Scripts Nitrofurantoin Monohydrate Mac (Macrobid) 100 Mg Cap, 100 MG PO BID, #14 CAP Prov:SHELLY HUTCHINSON 05/05/25 Cephalexin Monohydrate (Cephalexin) 500 Mg Tab, 1 TAB PO TID for 5 Days, #15 TAB Prov:FAZAL KNIGHT DO 04/18/25 Acetaminophen (Tylenol Extra Strength) 500 Mg Tab, 1000 MG PO Q6HP PRN, #30 TAB prn pain Prov:SHARIF PARDO MD 04/09/25 Nitrofurantoin Monohydrate Mac (Macrobid) 100 Mg Cap, 100 MG PO BID for 7 Days, #14 CAP Prov:SHARIF PARDO MD 04/09/25 Information Source: Patient Mode of Arrival: Ambulatory Timing: Days Duration: Since onset Medication Refill: For: Other (VAGINAL SPOTTING ) Past Medical History PAST MEDICAL HISTORY: UTI'S Surgical History: Denies all surgeries CHEF HEAD History: No Pertinent CHEF HEAD History Family History Family History: Reviewed,noncontributory to illness Social History Smoker: Non-Smoker Alcohol: Denies ETOH Use Drugs: Denies Drug Use Lives In: Home Constitutional: denies: chills, diaphoresis, fatigue, fever, malaise, sweats, weakness, others EENTM: reports: throat pain; denies: blurred vision, double vision, ear bleeding, ear discharge, ear drainage, ear pain, ear ringing, eye pain, eye redness, hearing loss, mouth pain, mouth swelling, nasal discharge, nose bleeding, nose congestion, nose pain, photophobia, tearing, throat swelling, voice changes, others Respiratory: denies: cough, hemoptysis, orthopnea, SOB at rest, shortness of breath, SOB with excertion, stridor, wheezing, others Cardiovascular: denies: chest pain, dizzy spells, diaphoresis, Dyspnea on exertion, edema, irregular heart beat, left arm pain, lightheadedness, palpitations, PND, syncope, others Gastrointestinal: denies: abdomen distended, abdominal pain, blood streaked bowels, constipated, diarrhea, dysphagia, difficulty swallowing, hematemesis, melena, nausea, poor appetite, poor fluid intake, rectal bleeding, rectal pain, vomiting, others Genitourinary: reports: abnormal vagina bleeding, ; denies: burning, dyspareunia, dysuria, flank pain, frequency, hematuria, incontinence, pain, vagina discharge, urgency, others Neurological: denies: dizziness, fainting, headache, left sided numbness, left sided weakness, numbness, paresthesia, pre-existing deficit, right sided numbness, right sided weakness, seizure, speech problems, tingling, tremors, weakness, others Musculoskeletal: denies: back pain, gout, joint pain, joint swelling, muscle pain, muscle stiffness, neck pain, others Integumetry: denies: bruises, change in color, change in hair/nails, dryness, laceration, lesions, lumps, rash, wounds, others Allergic/Immunocompromised: denies: Difficulty Healing, Frequent Infections, Hives, Itching, others Hematologic/Lymphatic: denies: anemia, blood clots, easy bleeding, easy bruising, swollen glands, others Endocrine: denies: excessive hunger, excessive sweating, excessive thirst, excessive urination, flushing, intolerance to cold, intolerance to heat, unexplained weight gain, unexplained weight loss, others Psychiatric: denies: anxiety, bipolar disorder, depression, hopeless, panic disorder, schizophrenia, sleepless, suicidal, others All Other Systems: Reviewed and Negative Physical Exam General Appearance: No Apparent Distress, Normal HEENT: Normal ENT Inspection, PERRL/EOMI, Pharynx Normal, TMs Normal Neck: Full Range of Motion, Non-Tender, Normal, Normal Inspection Respiratory: Chest Non-Tender, Lungs Clear, No Accessory Muscle Use, No Respiratory Distress, Normal Breath Sounds Cardiovascular: No Edema, No JVD, No Murmur, No Gallop, Normal Peripheral Pulses, Regular Rate/Rhythm Breast Exam: Deferred Gastrointestinal: No Organomegaly, Non Tender, No Pulsatile Mass, Normal Bowel Sounds, Soft Genitalia: Deferred Pelvic: Normal External Exam, Other (VAGINAL SPOTTING, NO VAGINAL BLEEDING AND BLOOD CLOTS. ) Rectal: Deferred Extremities: No calf tenderness, Normal capillary refill, Normal inspection, Normal range of motion, Non-tender, No pedal edema Musculoskeletal : Apperance: Normal Neurologic: Alert, brushing machine operator II-XII nml as Tested, No Motor Deficits, Normal Affect, Normal Mood, No Sensory Deficits Cerebellar Function: Normal Reflexes: Normal Skin: Dry, Normal Color, Warm Peripheral Pulses: 2+ carotid (R), 2+ carotid (L) Lymphatic: No Adenopathy Was a procedure done? Was a procedure done?: No Differential Dx Considerations may include: UTI, URI, VIRAL SYNDROME, INFLUENZA X-Ray, Labs, Meds, VS Vital Signs Date Time Temp Pulse Resp B/P (MAP) Pulse Ox O2 Delivery O2 Flow Rate FiO2 05/05/25 11:14 99.1 86 16 118/60 99 99.1 Lab Test 05/05/25 13:01 05/05/25 12:35 Range/Units White Blood Count 9.4 4.4-10.8 10^3/uL Red Blood Count 4.70 4.0-5.20 10^6/uL Hemoglobin 14.0 12.2-16.2 g/dL Hematocrit 40.4 36.0-46.0 % Mean Corpuscular Volume 86.0 80.0-100.0 fL Mean Corpuscular Hemoglobin 29.9 28.0-32.0 pg Mean Corpuscular Hemoglobin Concent 34.7 32.0-36.0 g/dL Red Cell Distribution Width 14.0 11.8-14.3 % Platelet Count 364 140-450 10^3/uL Mean Platelet Volume 7.0 6.9-10.8 fL Neutrophils (%) (Auto) 70.5 37.0-80.0 % Lymphocytes (%) (Auto) 21.5 10.0-50.0 % Monocytes (%) (Auto) 6.8 0.0-12.0 % Eosinophils (%) (Auto) 0.7 0.0-7.0 % Basophils (%) (Auto) 0.5 0.0-2.0 % Neutrophils # (Auto) 6.7 1.6-8.6 10 ^3/uL Lymphocytes # (Auto) 2.0 0.4-5.4 10 ^3/uL Monocytes # (Auto) 0.6 0-1.3 10 ^3/uL Eosinophils # (Auto) 0.1 0-0.8 10 ^3/uL Basophils # (Auto) 0 0-0.2 10 ^3/uL Nucleated Red Blood Cells 0.1 % Beta HCG, Quantitative 645355.3 H 1.5-4.2 mIU/mL Urine Color Yellow Yellow Urine Clarity Turbid H Clear Urine pH 6.0 5.0-9.0 Urine Specific Holly 1.024 1.001-1.035 Urine Protein Trace H Negative Urine Ketones Negative Negative Urine Blood 3+ H Negative /uL Urine Nitrite Negative Negative Urine Bilirubin Negative Negative Urine Urobilinogen Normal Negative mg/dL Urine Leukocyte Esterase 2+ Negative /uL Urine RBC 21 0 - 4 /hpf Urine Microscopic WBC 8 H 0-5 /HPF Urine Squamous Epithelial Cells Few <5 /hpf Urine Bacteria Many H None Seen /hpf Urine Mucus Few None Seen Urine Glucose Normal Normal mg/dL [place] [id number] Ph: [phone] DIAGNOSTIC IMAGING Diagnostic Imaging Report : [id number] Signed PATIENT: MARTA ZELAYA ACCT: [id number] UNIT: [id number] : 1995 LOC: ER ROOM / BED: / AGE / SEX: 30 / F ADM STATUS: REG ER SERVICE 1402 ORDERING PHYSICIAN: SHELLY HUTCHINSON PROCEDURE(s): OB4US - OB ULTRASOUND COMP LESS 14WKS REASON: VAGINAL SPOTTING, 7-8 WEEKS ORDER NUMBER(s): [id number], ACCESSION NUMBER(s): [id number] OBSTETRIC ULTRASOUND PRIOR TO 14 WEEKS CLINICAL INDICATION: VAGINAL SPOTTING, 7-8 WEEKS TECHNIQUE: Multiple grayscale ultrasound images were obtained of the pelvis via transabdominal approach for obstetric evaluation. Limited color Doppler and spectral Doppler acquisitions were also obtained. COMPARISON: US OB ULTRASOUND COMP LESS 14WKS on DOS: 04/18/25, FINDINGS: Uterus: 7.9 x 8.3 x 5.6 cm. There is a single intrauterine gestational sac is visualized. A pole is visualized measuring 1.9 cm compatible with an estimated gestational age of 8 weeks, 4 days. cardiac activity is present with heart rate of 181 beats per minute. A normal yolk sac is present. Right adnexa: right ovary 3.7 x 1.5 x 2.9 cm. Normal arterial blood flow in the ovary. No right adnexal mass seen. There is a corpus luteum in the right ovary measuring 1.8 cm. Left adnexa: left ovary not visualized. Normal arterial blood flow in the ovary. No left adnexal mass seen. Other: Small subchorionic hemorrhage measures 1.0 x 0.4 x 0.2 cm. IMPRESSION: 1. Single living intrauterine with an estimated gestational age of 8 weeks, 4 days, corresponding to an estimated date of delivery of 12/11/2025. 2. Small subchorionic hemorrhage. ATED BY: AMRIT HANDY MD DICTATED DATE/TIME: 05/05/251456 SIGNED BY: AMRIT HANDY MD SIGNED DATE/TIME: 05/05/251456 CC: X-Ray, Labs, Meds, VS Comment EXTERNAL MEDICAL RECORDS REVIEWED: [NONE] INDEPENDENT HISTORIANS: [NONE] SOCIAL DETERMINANTS OF HEALTH: [NONE] LABS ORDERED: BETA HCG, UA, CBC REVIEWED AND INTERPRETED RESULTS: IMAGING ORDERED: OBSTETRIC ULTRASOUND TREATMENTS ORDERED: NONE PROCEDURES PERFORMED: NONE CRITICAL CARE TIME: NONE I HAVE DISCUSSED THE PATIENT WITH THE ATTENDING PHYSICIAN, , SHE AGREES WITH THE PATIENT'S PLAN OF CARE AND DISPOSITION. BASED ON HISTORY OF PRESENT ILLNESS, AND PHYSICAL EXAM, PATIENT WILL BE DISCHARGED HOME. SHARED DECISION MAKING: DISCUSSED WITH PATIENT THAT THEIR WORKUP WAS NORMAL. PATIENT INSTRUCTED TO FOLLOW UP WITH PRIMARY CARE PROVIDER IN 1-2 DAYS FOR RE- EVALUATION OF SYMPTOMS. PATIENT VERBALIZES UNDERSTANDING TO RETURN TO ED FOR NEW OR WORSENING SYMPTOMS OR IF FOLLOW UP WITH PCP CANNOT BE OBTAINED. PATIENT FEELS COMFORTABLE GOING HOME AT THIS TIME. ALL QUESTIONS ADDRESSED AT TIME OF D ISCHARGE. Time of 1ST Reevaluation: 15:23 Reevaluation 1ST: Improved Patient Education/Counseling: Diagnosis, Treatment, Need For Follow Up Family Education/Counseling: Diagnosis, Treatment, Need For Follow Up, No Family Present Medical Screening: No EMC Exist At This Time SEPSIS Sepsis Screen Date sepsis recognized/suspect: May 05, 2025 Time Sepsis recognized/suspect: 1116 Recent Procedure: No On Antibiotic Therapy: Yes Respiratory Rate >20: No Heart Rate >90: No Temp<36 C (96.8 F) or >38.3 C: No SBP <90 or MAP <65 mmHG: No New Acute Mental Status Change: No Is the patient on CPAP, BIPAP,: No Physician Orders Ob Ultrasound Comp Less 14wks (05/05/25 14:02) Vital Signs Date Time Temp Pulse Resp B/P (MAP) Pulse Ox O2 Delivery O2 Flow Rate FiO2 05/05/25 11:14 99.1 86 16 118/60 99 99.1 Laboratory Tests Test 05/05/25 13:01 White Blood Count 9.4 10^3/uL (4.4-10.8) Departure 1 Departure Time of Disposition: 15:23 Impression: Primary Impression: Vaginal spotting Additional Impressions: Threatened in first trimester UTI (urinary tract infection) Qualified Codes: N30.00 - Acute cystitis without hematuria Disposition: 01 HOME / SELF CARE / HOMELESS Condition: Stable Additional Instructions: FOLLOW-UP WITH PCP/ OBGYN IN 1 TO 2 DAYS. TAKE MEDICATIONS PRESCRIBED. RETURN TO ED FOR ANY NEW OR WORSENING SYMPTOMS. e-Prescriptions Nitrofurantoin Monohydrate Mac (Macrobid) 100 Mg Cap 100 MG PO BID, #14 CAP Prov: SHELLY HUTCHINSON 05/05/25 Discharged With: Self, Relative Critical Care Note Critical Care Time?: No Stability Stability form required: No I personally scribed for SHELLY HUTCHINSON ([email or web address]) on 05/05/25 at 12:26. Electronically submitted by Karolyn Puente ([facility]). I personally scribed for SHELLY HUTCHINSON ([email or web address]) on 05/05/25 at 15:18. Electronically submitted by Karolyn Puente ([facility]). SHELLY HUTCHINSON May 05, 2025 12:26
[2025-05-05 13:28] LABS: Urine Protein, UAD TRACE (Negative)
[2025-05-05 13:35] LABS: Hematocrit 40.4 % (36.0-46.0); Hemoglobin 14.0 g/dL (12.2-16.2); Mean Corpuscular Hemoglobin 29.9 pg (28.0-32.0); Mean Corpuscular Volume 86.0 fL (80.0-100.0); Nucleated Red Blood Cells % 0.1 %
--- NOTE | 2025-05-05 14:59 | DVH ---
OBSTETRIC ULTRASOUND PRIOR TO 14 WEEKS CLINICAL INDICATION: VAGINAL SPOTTING, 7-8 WEEKS TECHNIQUE: Multiple grayscale ultrasound images were obtained of the pelvis via transabdominal appro ach for obstetric evaluation. Limited color Doppler and spectral Doppler acquisitions were also obtai wendy. COMPARISON: US OB ULTRASOUND COMP LESS 14WKS on DOS: 04/18/25, FINDINGS: Uterus: 7.9 x 8.3 x 5.6 cm. There is a single intrauterine gestational sac is visualized. A cathy e is visualized measuring 1.9 cm compatible with an estimated gestational age of 8 weeks, 4 days. Fe rajinder cardiac activity is present with heart rate of 181 beats per minute. A normal yolk sac is presen t. Right adnexa: right ovary 3.7 x 1.5 x 2.9 cm. Normal arterial blood flow in the ovary. No right adne xal mass seen. There is a corpus luteum in the right ovary measuring 1.8 cm. Left adnexa: left ovary not visualized. Normal arterial blood flow in the ovary. No left adnexal mass seen. Other: Small subchorionic hemorrhage measures 1.0 x 0.4 x 0.2 cm. IMPRESSION: 1. Single living intrauterine with an estimated gestational age of 8 weeks, 4 days, corre sponding to an estimated date of delivery of 12/11/2025. 2. Small subchorionic hemorrhage.
[2025-05-05] MEDS ORDERED: NITR-87 PO (15:22)
[2025-05-05 15:23] VITALS: BP 107/75; PULSE 74; RESP 16; TEMP 97.9; O2SAT 100
== END 2025-05-05 15:25 | disposition home or self-care (01) ==
LOC: ER 11:11
DX: O20.0 Threatened abortion (principal); O20.8 Other hemorrhage in early pregnancy; O23.41 Unspecified infection of urinary tract in pregnancy, first trimester; N39.0 Urinary tract infection, site not specified; Z3A.08 8 weeks gestation of pregnancy; Z79.899 Other long term (current) drug therapy
CPT/HCPCS: 36415; 76801; 81001; 84702; 85025

== ENCOUNTER 2025-06-16 23:37 | Emergency (ER) | payer MEDICAID ==
[~2025-06-16] VITALS: Ht 162.6 cm; Wt 117.0 kg
[2025-06-17 00:47] LABS: Hematocrit 36.2 % (36.0-46.0); Hemoglobin 13.0 g/dL (12.2-16.2); Mean Corpuscular Hemoglobin 30.9 pg (28.0-32.0); Mean Corpuscular Volume 85.7 fL (80.0-100.0); Nucleated Red Blood Cells % 0.0 %
--- NOTE | 2025-06-17 00:55 | ED.PDOC ---
DIRECTOR OF CODING HPI Comments 30-year-old primigravida with PMH of UTIs and no significant surgical history, has come to the ER for abdominal pain. Patient reports that she is 15 weeks , had her last ultrasound done 1 week ago and today had acute onset of right lower quadrant and groin pain, that began when she was sitting down, dull pressure-like and aching in nature, 8/10 in intensity, increased on walking, tender on touch, associated with burning type of lower back pain, making it difficult for her to stand for long. On inquiry, patient states that she is nauseated but denies any fever, chills, vomiting, bleeding from her vagina, discharge, abdominal cramps, burning micturition, dysuria or any other urinary symptoms. She has had no change in bowel movements. She states that she has been taking vitamins and no other medication. She states that her due date is on 10/09/2025. On initial assessment, patient is A/O x4, slightly anxious. Attestation note: Dr. Knight: I was the supervising attending for this ED encounter. Please see the resident's notes. I was available for questions and consultations. Differential diagnosis: DDX include Diverticulitis, colitis, gastroenteritis, acute abdomen, SBO, enteritis, constipation, volvulus, appendicitis, Gallbladder disease, choledocolithiasis, ascending cholangitis, pancreatitis, intraAbdominal ma ss/neoplasm, hepatitis, UTI, pylonephritis, kidney stone, aneurysm, dissection, Inflammatory bowel disease, gastroparesis, ischemic bowel,,,,,, Food poisoning, bacterial/parasitic/viral etiology, trauma, diabetes DKA, ovarian torsion, ovarian cyst/mass, tubo-ovarian abscess, , ectopic , PID, STD. MDM: MDM: patient presented with the above HPI.--right lower quadrant pain in ----workup was initiated. patient was found with the above mentioned diagnosis. the following medications were ordered: please refer to order lists of meds and tests obtained by myself Dr. Knight. Patient ED course and VS have been stabilized. Patient has been reassessed in the ED and remained in a stable condition. Pertinent incidental findings were discussed with the patient and/or family. Patient/family voices understanding and is agreeable with plan. Patient has been observed in the ED adequate length of time to insure improvement/stability. Escalation of care considered: Consideration of escalation to observation or admission Patient was DISCHARGED home in a stable condition. All the reports of any imaging studies that were ordered by myself were reviewed by myself. Chief Complaint: Abdominal Pain Time Seen by MD: 00:30 Primary Care Provider: Dr. Smith Reviewed Notes: Medications, Allergies Allergies: Coded Allergies: NO KNOWN ALLERGIES (Unverified , 04/09/25) Home Meds Active Scripts Cephalexin Monohydrate (Cephalexin) 500 Mg Cap, 500 MG PO Q8HR for 5 Days, #15 CAP Prov:FAZAL KNIGHT DO 06/17/25 Nitrofurantoin Monohydrate Mac (Macrobid) 100 Mg Cap, 100 MG PO BID, #14 CAP Prov:SHELLY HUTCHINSON 05/05/25 Cephalexin Monohydrate (Cephalexin) 500 Mg Tab, 1 TAB PO TID for 5 Days, #15 TAB Prov:FAZAL KNIGHT DO 04/18/25 Acetaminophen (Tylenol Extra Strength) 500 Mg Tab, 1000 MG PO Q6HP PRN, #30 TAB prn pain Prov:SHARIF PARDO MD 04/09/25 Nitrofurantoin Monohydrate Mac (Macrobid) 100 Mg Cap, 100 MG PO BID for 7 Days, #14 CAP Prov:SHARIF PARDO MD 04/09/25 Mode of Arrival: Ambulatory Timing: Hours Prehospital treatment: None Severity: Mild Vaginal Discharge: None Vaginal Lesions: None Vaginal Mass: None Past Medical History PAST MEDICAL HISTORY: UTI'S Surgical History: Denies all surgeries NETWORK ASSOCIATE History: No Pertinent NETWORK ASSOCIATE History Family History Family History: Reviewed,noncontributory to illness Social History Smoker: Non-Smoker Alcohol: Denies ETOH Use Drugs: Denies Drug Use Lives In: Home Constitutional: denies: chills, diaphoresis, fatigue, fever, malaise, sweats, weakness, others EENTM: denies: blurred vision, double vision, ear bleeding, ear discharge, ear drainage, ear pain, ear ringing, eye pain, eye redness, hearing loss, mouth pain, mouth swelling, nasal discharge, nose bleeding, nose congestion, nose pain, photophobia, tearing, throat pain, throat swelling, voice changes, others Respiratory: denies: cough, hemoptysis, orthopnea, SOB at rest, shortness of breath, SOB with excertion, stridor, wheezing, others Cardiovascular: denies: chest pain, dizzy spells, diaphoresis, Dyspnea on exertion, edema, irregular heart beat, left arm pain, lightheadedness, p alpitations, PND, syncope, others Gastrointestinal: reports: abdominal pain, nausea; denies: abdomen distended, blood streaked bowels, constipated, diarrhea, dysphagia, difficulty swallowing, hematemesis, melena, poor appetite, poor fluid intake, rectal bleeding, rectal pain, vomiting, others Genitourinary: reports: ; denies: abnormal vagina bleeding, burning, dyspareunia, dysuria, flank pain, frequency, hematuria, incontinence, pain, vagina discharge, urgency, others Neurological: denies: dizziness, fainting, headache, left sided numbness, left sided weakness, numbness, paresthesia, pre-existing deficit, right sided numbne ss, right sided weakness, seizure, speech problems, tingling, tremors, weakness, others Musculoskeletal: reports: back pain; denies: gout, joint pain, joint swelling, muscle pain, muscle stiffness, neck pain, others Integumetry: denies: bruises, change in color, change in hair/nails, dryness, laceration, lesions, lumps, rash, wounds, others Allergic/Immunocompromised: denies: Difficulty Healing, Frequent Infections, Hives, Itching, others Hematologic/Lymphatic: denies: anemia, blood clots, easy bleeding, easy bruising, swollen glands, others Endocrine: denies: excessive hunger, excessive sweating, excessive thirst, excessive urination, flushing, intolerance to cold, intolerance to heat, unexplained weight gain, unexplained weight loss, others Psychiatric: denies: anxiety, bipolar disorder, depression, hopeless, panic disorder, schizophrenia, sleepless, suicidal, others Physical Exam General Appearance: Mild Distress HEENT: Other (No icterus, no pallor, maintains eye contact) Neck: Other (Absence of JVD, no enlarged lymph nodes palpated) Respiratory: No Accessory Muscle Use, No Respiratory Distress, Other (No wheezes, rhonchi, stridor heard) Cardiovascular: No JVD, No Murmur, Regular Rate/Rhythm Breast Exam: Deferred Gastrointestinal: RLQ, Tenderness, Other (No guarding, no rebound tenderness, no masses felt) Genitalia: Deferred Pelvic: Deferred Rectal: Deferred Extremities: No calf tenderness, Normal range of motion, No pedal edema, Other (Low pitting edema, no rashes or bruises up to knee level noted) Neurologic: Other (No speech problems, no facial drooping) Cerebellar Function: NOT DONE Reflexes: Normal Skin: Normal Color, Other (Absence of any rashes, lacerations, bruising) Lymphatic: NOT DONE Was a procedure done? Was a procedure done?: No Differential Diagnosis (NETWORK ASSOCIATE) Vaginal Bleeding: - Complete, - Incomplete, - Inevitable, - Missed, - Threatened, Abruptio Placentae, Blood Loss Anemia, Cervicitis, Dysmenorrhea, Ectopic , Hormonal, Menorrhagia, Menometrorrhagia, Menstrual Bleeding, Myomatous Uterus, PID, Placenta Previa, Precipitous Hct, Trauma, UTI, Vaginitis, Other (Appendicitis) X-Ray, Labs, Meds, VS Vital Signs Date Time Temp Pulse Resp B/P (MAP) Pulse Ox O2 Delivery O2 Flow Rate FiO2 06/17/25 04:04 98.3 68 18 105/55 (72) 99 98.3 06/16/25 23:37 97.4 93 16 115/68 100 97.4 Lab Test 06/17/25 00:27 06/16/25 00:00 Range/Units White Blood Count 10.6 4.4-10.8 10^3/uL Red Blood Count 4.22 4.0-5.20 10^6/uL Hemoglobin 13.0 12.2-16.2 g/dL Hematocrit 36.2 36.0-46.0 % Mean Corpuscular Volume 85.7 80.0-100.0 fL Mean Corpuscular Hemoglobin 30.9 28.0-32.0 pg Mean Corpuscular Hemoglobin Concent 36.0 32.0-36.0 g/dL Red Cell Distribution Width 13.7 11.8-14.3 % Platelet Count 303 140-450 10^3/uL Mean Platelet Volume 7.1 6.9-10.8 fL Neutrophils (%) (Auto) 79.6 37.0-80.0 % Lymphocytes (%) (Auto) 13.5 10.0-50.0 % Monocytes (%) (Auto) 5.8 0.0-12.0 % Eosinophils (%) (Auto) 0.6 0.0-7.0 % Basophils (%) (Auto) 0.5 0.0-2.0 % Neutrophils # (Auto) 8.4 1.6-8.6 10 ^3/uL Lymphocytes # (Auto) 1.4 0.4-5.4 10 ^3/uL Monocytes # (Auto) 0.6 0-1.3 10 ^3/uL Eosinophils # (Auto) 0.1 0-0.8 10 ^3/uL Basophils # (Auto) 0.1 0-0.2 10 ^3/uL Nucleated Red Blood Cells 0.0 % Sodium Level 140 136-145 mmol/L Potassium Level 3.3 L 3.5-5.1 mmol/L Chloride Level 106 98-107 mmol/L Carbon Dioxide Level 26 20-31 mmol/L Anion Gap 8 5-15 Blood Urea Nitrogen 7 L 9-23 mg/dL Creatinine 0.60 0.550-1.02 mg/dL Glomerular Filtration Rate Calc 125 >90 mL/min BUN/Creatinine Ratio 11.7 10.0-20.0 Serum Glucose 86 74-106 mg/dL Lactic Acid Level 0.5 0.4-2.0 mmol/L Calcium Level 9.5 8.7-10.4 mg/dL Total Bilirubin 0.4 0.2-1.0 mg/dL Aspartate Amino Transferase (AST) 16 13-40 U/L Alanine Aminotransferase (ALT) 10 7-40 U/L Alkaline Phosphatase 62 46-116 U/L Total Protein 7.1 5.7-8.2 g/dL Albumin 4.2 3.2-4.8 g/dL Beta HCG, Quantitative 964998.5 H 1.5-4.2 mIU/mL Urine Color Light-yellow Yellow Urine Clarity Clear Clear Urine pH 6.5 5.0-9.0 Urine Specific Gerald 1.016 1.001-1.035 Urine Protein Negative Negative Urine Ketones Negative Negative Urine Blood Negative Negative /uL Urine Nitrite Negative Negative Urine Bilirubin Negative Negative Urine Urobilinogen Normal Negative mg/dL Urine Leukocyte Esterase Negative Negative /uL Urine RBC None seen 0 - 4 /hpf Urine Microscopic WBC 1 0-5 /HPF Urine Squamous Epithelial Cells Few <5 /hpf Urine Bacteria Few H None Seen /hpf Urine Mucus Few None Seen Urine Glucose Normal Normal mg/dL Urine Opiates Screen Neg NEGATIVE Urine Fentanyl Screen Neg NEGATIVE Urine Barbiturates Screen Neg NEGATIVE Urine Phencyclidine Screen Neg NEGATIVE Urine Amphetamines Screen Neg NEGATIVE Urine Benzodiazepines Screen Neg NEGATIVE Urine Cocaine Screen Neg NEGATIVE Urine Cannabinoids Screen Neg NEGATIVE [facility] [address] [facility] [address] Ph: [phone] DIAGNOSTIC IMAGING Diagnostic Imaging Report : [id number] Signed PATIENT: MARTA ZELAYA ACCT: [id number] UNIT: [id number] : 1995 LOC: ER ROOM / BED: / AGE / SEX: 30 / F ADM STATUS: REG ER SERVICE ORDERING PHYSICIAN: FAZAL KNIGHT DO PROCEDURE(s): OBUS - OB ULTRASOUND COMP GTR 14 WKS REASON: lower abd pain ORDER NUMBER(s): [id number], ACCESSION NUMBER(s): [id number] LIMITED OB ULTRASOUND > 14 WKS: HISTORY: lower abd pain TECHNIQUE: Multiple real-time grayscale images of the gravid uterus with duplex Doppler color flow and M-mode spectral analysis. COMPARISON: US OB ULTRASOUND COMP LESS 14WKS on DOS: 05/05/25, US OB ULTRASOUND COMP LESS 14WKS on DOS: 04/18/25, US OB ULTRASOUND COMP LESS 14WKS on DOS: 04/09/25 FINDINGS: Single live intrauterine gestation in the transverse position, head to the maternal left. heart rate 153 beats per minute. Placenta is posterior and low-lying. Cervix measures 2.4 cm and is closed. 4-chamber cardiac view, stomach, and bladder appear normal. Kidneys not well visualized. BPD 2.9 cm, 15 weeks 2 days HC 11.2 cm, 15 weeks 3 days HC 8.3 cm, 14 weeks 5 days FL 1.6 cm, 14 weeks 5 days Average ultrasound gestational age: 15 weeks 0 days, CHRIS 12/08/2025 Estimated weight 105 g IMPRESSION: IUP single live fetus at 15 weeks 0 days AUA corresponding to an CHRIS of 12/09/2025. Placenta is low lying. This can be reassessed at next follow-up. ATED BY: ANDERSON ROMERO MD DICTATED DATE/TIME: 06/17/25143 SIGNED BY: ANDERSON ROMERO MD SIGNED DATE/TIME: 06/17/25143 CC: [address] [address] Ph: [phone] DIAGNOSTIC IMAGING Diagnostic Imaging Report : [id number] Signed PATIENT: MARTA ZELAYA ACCT: [id number] UNIT: [id number] : 1995 LOC: ER ROOM / BED: / AGE / SEX: 30 / F ADM STATUS: REG ER SERVICE ORDERING PHYSICIAN: SINGH LANE PROCEDURE(s): RTLQD - RIGHT LOWER QUAD REASON: r/o appendicitis ORDER NUMBER(s): [id number], ACCESSION NUMBER(s): [id number] INDICATION: r/o appendicitis. Right lower quadrant pain. TECHNIQUE: Multiple real-time sonographic images were obtained of the right lower quadrant. COMPARISON: None FINDINGS: Appendix not definitely seen. Few mildly prominent right lower quadrant mesenteric lymph nodes measuring up to 1.0 cm. Trace right lower quadrant fluid. Peristalsing bowel noted throughout the examination. IMPRESSION: Appendix not convincingly seen. Few mildly prominent mesenteric lymph nodes, likely reactive. Trace fluid in the right lower quadrant. Short-term follow-up may be warranted if there is sufficient concern for acute appendicitis. Alternatively, MRI could be considered. ATED BY: ANDERSON ROMERO MD DICTATED DATE/TIME: 06/17/25147 SIGNED BY: ANDERSON ROMERO MD SIGNED DATE/TIME: 06/17/25147 CC: Images Reviewed?: Images reviewed and evaluated by tx Time of 1ST Reevaluation: 02:20 Reevaluation 1ST: Unchanged Time of 2ND Reevaluation: 03:15 Patient Education/Counseling: Diagnosis, Treatment Family Education/Counseling: No Family Present See dictated note # Patient presented to the ER for lower right quadrant pain which began today. Obstetrics ultrasound showed 'IUP single live fetus at 15 weeks 0 days AUA corresponding to an CHRIS of 12/09/2025, Placenta is low lying. This can be reassessed at next follow-up.' Ultrasound of the appendix was done which showed 'Appendix not convincingly seen,few mildly prominent mesenteric lymph nodes, likely reactive, Trace fluid in the right lower quadrant.' Patient has no inflammatory markers of infection and her vitals are stable which does not raise sufficient concern for acute appendicitis. CBC and BMP were unremarkable and beta HCG levels was 410473.5. UA shows bacteriuria but is negative for UTI and UDS was negative. Patient was counseled regarding her reports. For her pain, Acetaminophen 650 mg was given per orally. Patient is stable and is being discharged. She has been counseled to follow up as soon as possible with her PCP and OBGYN doctor and to return to the ER if she has vaginal bleeding, severe abdominal pain or any other symptoms causing distress. Departure 1 Departure Time of Disposition: 03:03 Impression: Primary Impression: Bacteriuria Additional Impressions: Intrauterine Low-lying placenta Right lower quadrant pain Disposition: HOME / SELF CARE / HOMELESS Condition: Stable Additional Instructions: Additional instructions: Please read all instructions provided in this packet carefully. You MUST follow-up with your primary care/family doctor in 1 to 2 days. If you are unable to see your primary care/family doctor, please return to our emergency room for re-assessment and re-evaluation in 1 to 2 days. Return to the emergency room here in our facility or to the nearest ER GEN if your symptoms change or worsen. CONSULTATIONS: you MUST Follow-up for consultation as soon as possible with: Dr.-OB Pena doctor in 1-2 days. You MUST call the consultants office yourself to make an appointment. You may need to arrange that through your insurance and/or your primary/family doctor. If you are unable to see the professional services consultant in 1 to 2 days, you must return to our emergency room (or any other ER of your choice) for re-assessment and re- evaluation. Adequate fluid hydration. Although you have been discharged from the Emergency Department, this does not mean that you have a "clean bill of health". No definitive diagnosis for your symptoms has been made today. It is possible that you are in the process of developing a serious illness. This is why you must return to the ED without fail if any new or worsening symptoms develop. Absolute pelvic rest. Below is a copy of your radiological report for follow up: [facility] [address] [address] Ph: [phone] DIAGNOSTIC IMAGING Diagnostic Imaging Report : [id number] Signed PATIENT: MARTA ZELAYA ACCT: [id number] UNIT: [id number] : 1995 LOC: ER ROOM / BED: / AGE / SEX: 30 / F ADM STATUS: REG ER SERVICE ORDERING PHYSICIAN: FAZAL KNIGHT DO PROCEDURE(s): OBUS - OB ULTRASOUND COMP GTR 14 WKS REASON: lower abd pain ORDER NUMBER(s): [id number], ACCESSION NUMBER(s): [id number] LIMITED OB ULTRASOUND > 14 WKS: HISTORY: lower abd pain TECHNIQUE: Multiple real-time grayscale images of the gravid uterus with duplex Doppler color flow and M-mode spectral analysis. COMPARISON: US OB ULTRASOUND COMP LESS 14WKS on DOS: 05/05/25, US OB ULTRASOUND COMP LESS 14WKS on DOS: 04/18/25, US OB ULTRASOUND COMP LESS 14WKS on DOS: 04/09/25 FINDINGS: Single live intrauterine gestation in the transverse position, head to the maternal left. heart rate 153 beats per minute. Placenta is posterior and low-lying. Cervix measures 2.4 cm and is closed. 4-chamber cardiac view, stomach, and bladder appear normal. Kidneys not well visualized. BPD 2.9 cm, 15 weeks 2 days HC 11.2 cm, 15 weeks 3 days HC 8.3 cm, 14 weeks 5 days FL 1.6 cm, 14 weeks 5 days Average ultrasound gestational age: 15 weeks 0 days, CHRIS 12/08/2025 Estimated weight 105 g IMPRESSION: IUP single live fetus at 15 weeks 0 days AUA corresponding to an CHRIS of 12/09/2025. Placenta is low lying. This can be reassessed at next follow-up. ATED BY: ANDERSON ROMERO MD DICTATED DATE/TIME: 06/17/25143 SIGNED BY: ANDERSON ROMERO MD SIGNED DATE/TIME: 06/17/25143 CC: [address] [address] Ph: [phone] DIAGNOSTIC IMAGING Diagnostic Imaging Report : [id number] Signed PATIENT: MARTA ZELAYA ACCT: [id number] UNIT: [id number] : 1995 LOC: ER ROOM / BED: / AGE / SEX: 30 / F ADM STATUS: REG ER SERVICE [id number] ORDERING PHYSICIAN: SINGH LANE RESIDENT PROCEDURE(s): RTLQD - RIGHT LOWER QUAD REASON: r/o appendicitis ORDER NUMBER(s): [id number], ACCESSION NUMBER(s): [id number] INDICATION: r/o appendicitis. Right lower quadrant pain. TECHNIQUE: Multiple real-time sonographic images were obtained of the right lower quadrant. COMPARISON: None FINDINGS: Appendix not definitely seen. Few mildly prominent right lower quadrant mesenteric lymph nodes measuring up to 1.0 cm. Trace right lower quadrant fluid. Peristalsing bowel noted throughout the examination. IMPRESSION: Appendix not convincingly seen. Few mildly prominent mesenteric lymph nodes, likely reactive. Trace fluid in the right lower quadrant. Short-term follow-up may be warranted if there is sufficient concern for acute appendicitis. Alternatively, MRI could be considered. ATED BY: ANDERSON ROMERO MD DICTATED DATE/TIME: 06/17/25147 SIGNED BY: ANDERSON ROMERO MD SIGNED DATE/TIME: 06/17/25147 CC: e-Prescriptions Cephalexin Monohydrate (Cephalexin) 500 Mg Cap 500 MG PO Q8HR for 5 Days, #15 CAP Prov: FAZAL KNIGHT DO 06/17/25 Discharged With: Self Critical Care Note Critical Care Time?: No Stability Stability form required: No Heart Score Heart Score: Heart Score Response (Comments) Value History N/A 0 EKG N/A 0 Age N/A 0 Risk Factors N/A 0 Troponin N/A 0 Total 0 I personally scribed for FAZAL KNIGHT DO ([email or web address]) on 06/17/25 at 01:55. Electronically submitted by Calos Pina ([email or web address]). I personally scribed for FAZAL KNIGHT DO ([email or web address]) on 06/17/25 at 01:57. Electronically submitted by Calos Pina ([email or web address]). [address] Jun 17, 2025 00:55 FAZAL KNIGHT DO Jun 17, 2025 01:55
[2025-06-17 00:59] LABS: Alanine Aminotransferase 10 U/L (7-40); Albumin 4.2 g/dL (3.2-4.8); Alkaline Phosphatase 62 U/L (46-116); Anion Gap 8 (5-15); BUN/Creatinine Ratio 11.7 (10.0-20.0); Calcium 9.5 mg/dL (8.7-10.4); Carbon Dioxide 26 mmol/L (20-31); Chloride 106 mmol/L (98-107); Glucose 86 mg/dL (74-106); Sodium 140 mmol/L (136-145); Total Protein 7.1 g/dL (5.7-8.2)
[2025-06-17 01:00] LABS: Bilirubin, Total 0.4 mg/dL (0.2-1.0)
[2025-06-17 01:01] LABS: Blood Urea Nitrogen 7 mg/dL (9-23); Potassium 3.3 mmol/L (3.5-5.1)
[2025-06-17 01:23] LABS: Urine Protein, UAD Negative (Negative)
[2025-06-17 01:31] LABS: Amphetamine Screen, Urine Neg (NEGATIVE); Barbiturate Scree,Urine Neg (NEGATIVE); Benzodiazephine Screen, Urine Neg (NEGATIVE); Cannabinoid Screen, Urine Neg (NEGATIVE); Cocaine Screen, Urine Neg (NEGATIVE); Opiate Scree,Urine Neg (NEGATIVE); Phencyclidine Screen, Urine Neg (NEGATIVE)
--- NOTE | 2025-06-17 01:47 | DVH ---
LIMITED OB ULTRASOUND > 14 WKS: HISTORY: lower abd pain TECHNIQUE: Multiple real-time grayscale images of the gravid uterus with duplex Doppler color flow and M-mode spectral analysis. COMPARISON: US OB ULTRASOUND COMP LESS 14WKS on DOS: 05/05/25, US OB ULTRASOUND COMP LESS 14WKS on DOS: 04/18/25, US OB ULTRASOUND COMP LESS 14WKS on DOS: 04/09/25 FINDINGS: Single live intrauterine gestation in the transverse position, head to the maternal left. heart rate 153 beats per minute. Placenta is posterior and low-lying. Cervix measures 2.4 cm and is closed. 4-chamber cardiac view, stomach, and bladder appear normal. Kidneys not well visualized. BPD 2.9 cm, 15 weeks 2 days HC 11.2 cm, 15 weeks 3 days HC 8.3 cm, 14 weeks 5 days FL 1.6 cm, 14 weeks 5 days Average ultrasound gestational age: 15 weeks 0 days, CHRIS 12/08/2025 Estimated weight 105 g IMPRESSION: IUP single live fetus at 15 weeks 0 days AUA corresponding to an CHRIS of 12/09/2025. Placenta is low lying. This can be reassessed at next follow-up.
--- NOTE | 2025-06-17 01:51 | DVH ---
INDICATION: r/o appendicitis. Right lower quadrant pain. TECHNIQUE: Multiple real-time sonographic images were obtained of the right lower quadrant. COMPARISON: None FINDINGS: Appendix not definitely seen. Few mildly prominent right lower quadrant mesenteric lymph nodes measuring up to 1.0 cm. Trace right lower quadrant fluid. Peristalsing bowel noted throughout the examination. IMPRESSION: Appendix not convincingly seen. Few mildly prominent mesenteric lymph nodes, likely reactive. Trace fluid in the right lower quadrant. Short-term follow-up may be warranted if there is sufficient concern for acute appendicitis. Alternatively, MRI could be considered.
[2025-06-17] MEDS ORDERED: ACETAMINOPHEN 325 MG TAB PO ONE (02:43)
[2025-06-17] MEDS: ACETAMINOPHEN 325 MG TAB PO ONE (02:43)
[2025-06-17] MEDS ORDERED: CEPH500C PO (03:05)
[2025-06-17 04:04] VITALS: BP 105/55; PULSE 68; RESP 18; TEMP 98.3; O2SAT 99
== END 2025-06-17 04:28 | disposition home or self-care (01) ==
LOC: ER 23:37 → EDBD 23:37 → ER 06-17 04:28
DX: O26.892 Other specified pregnancy related conditions, second trimester (principal); R82.71 Bacteriuria; R10.31 Right lower quadrant pain; O44.42 Low lying placenta NOS or without hemorrhage, second trimester; Z3A.15 15 weeks gestation of pregnancy; Z87.440 Personal history of urinary (tract) infections; Z79.899 Other long term (current) drug therapy
CPT/HCPCS: 36415; 76705; 76805; 80053; 80307; 81001; 83605; 84702; 85025